=== PATIENT | female | born 1945 | race Caucasian/White ===

== ENCOUNTER 2022-05-12 10:15 | Observation (INO) ==
[2022-05-12] MEDS ORDERED: METOPROLOL SUCC 25MG EXT REL TAB PO STA (10:48)
--- NOTE | 2022-05-12 10:52 | Emergency Department Note ---
Impression & Plan Atrial fibrillation with rapid ventricular response ED Provider Note INFORMANT: Patient ED PROVIDER(S): Gerardo Paula MD CHIEF COMPLAINT: Palpitations and chest discomfort PLAN: Disposition: Admitted Condition: Good Outpatient prescription management: none Referral: None MEDICAL DECISION MAKING: Patient presented because of chest discomfort, shortness of breath and ge neralized weakness with palpitations and a heart rate of 188. She has history of A. fib and it sounds like she experienced an episode of A. fib with RVR. Patient presented with a heart rate of 151 and by time she had an EKG performed her heart rate decreased and she appeared to have reverted back to a sinus rhythm with ectopy. A work-up was performed. Initial CBC and chemistry panel was unremarkable. The patient did have a normal troponin. She had some additional chest symptoms and a repeat ECG did not show any acute ischemia. Her monitoring showed that she maintained a sinus rhythm. She was given her morning atenolol. She was monitored and a repeat troponin was performed. Repeat t roponin did increase into the slightly abnormal level. I did consult with [facility] cardiology. She normally sees Dr. Lucio but Dr. Thomas was available. Given the symptoms and the change in troponin he recommended the patient come in to have serial troponin measurements as well as an echocardi ogram and monitoring by the hospitalist. Consultation was made with the [facility] hospitalist service.patient was evaluated in the admitted for further management Triage Nursing notes reviewed and agree them. Vital Signs: reviewed and remarkable for significant tachycardia Differential diagnosis: Premature contractions, electrolyte abnormality, cardiac dysrhythmia, thyroid dysfunction, pulmonary embolism, infection, gastrointestinal, as well as other pathologies. Diagnostics interpreted by me: ECG: Twelve-lead ECG #1 revealed a sinus tachycardia at [address] elevation or depression. No PVCs. No obvious ischemia. Her repeat ECG #2 revealed a normal sinus rhythm at [address] elevation or depression. No PVCs or PACs. Cardiac Monitoring: Cardiac monitoring ordered by me: The patient was placed on continuous cardiac monitoring and observed. It revealed a sinus tachycardic rhythm at 110 beats per minute without evidence of dysrhythmia. Imaging studies: Deferred HPI: The patient is a 77 year old female who presents to the Emergency Room with complaints of palpitations and racing heartbeat. This started this morning and is now resolved. The patient also notes the following associated symptoms, lightheadedness, SOB. The patient has taken her eliquis but not metoprolol for relieving factors. Current pain is rated as 0/10. Hx of AFIB. Pt denies LOC, headache, fevers, chills, diaphoresis, visual changes, neck pain, chest pain, nausea, vomiting, abdominal pain, back pain, melena, hematochezia, urinary symptoms, numbness, lymphadenopathy, rash, or other complaints. ROS: See above HPI for pertinent positives & negatives. A total of 10 systems reviewed and were otherwise negative. PAST MEDICAL HISTORY:See Below , AFIB PAST SURGICAL HISTORY:See Below, FAMILY HISTORY:See Below SOCIAL HISTORY:See Below, retired HOME MEDICATIONS:See Below ALLERGIES:See Below VITALS:See Below PHYSICAL EXAMINATION: GENERAL: Awake, tired-appearing, in no distress HENT: Normocephalic, atraumatic. Oropharynx unremarkable. EYES: Normal conjunctiva. Sclera non-icteric. NECK: Inspection normal. Non-tender. Supple. No nuchal rigidity. FROM. No masses. RESPIRATORY: Clear to auscultation. No wheezes. No rales. Normal respiratory effort. CARDIAC: Normal rate. Normal rhythm. No murmurs. No rubs. Extremities warm and well perfused. Pulses equal. No JVD. GI: Soft, non-distended. No tenderness to palpation. No rebound or guarding. No masses. RECTAL: Deferred. MUSCULOSKELETAL: Atraumatic. Chest examination reveals no tenderness. The back is symmetrical on inspection without obvious abnormality. There is no CVA tenderness to palpation. No joint edema. LOWER EXTREMITIES: Calves are equal size bilaterally and non-tender. No edema. No discoloration. NEURO: Normal sensorium. No sensory or motor deficits noted. SKIN: No rash or jaundice noted. Gerardo Paula MD Past Med/Surg History Medical History Hypertension On apixaban therapy Paroxysmal atrial fibrillation Family History Other Family history non-contributory Social History Smoking Status: Never smoker Tobacco Type: Cigarettes Preferred Language: Armenian Feels Safe at Home: Yes Allergies Allergies Allergy/AdvReac Type Severity Reaction Status Date / Time codeine Allergy Mild ITCHINESS Verified 05/12/22 15:15 hydromorphone [From Dilaudid] Allergy Mild ITCHINESS Verified 05/12/22 15:15 morphine Allergy Mild ITCHINESS Verified 05/12/22 15:15 sulfamethoxazole Allergy Mild ITCHINESS Verified 05/12/22 15:15 [From Bactrim] trimethoprim [From Bactrim] Allergy Mild ITCHINESS Verified 05/12/22 15:15 theophylline Allergy Unknown CAN'T Verified 05/12/22 15:15 REMEMBER tramadol Allergy Unknown CAN'T Verified 05/12/22 15:15 REMEMBER REYNOLD Inhibitors AdvReac Intermediate Cough Verified 05/12/22 15:15 nefazodone [From Serzone] AdvReac Intermediate FLU-LIKE Verified 05/12/22 15:15 SYMPTOMS tamoxifen AdvReac Intermediate Joint Pain Verified 05/12/22 15:15 NSAIDS (Non-Steroidal AdvReac Unknown POST Verified 05/12/22 15:15 Anti-Inflamma GASTRIC BYPASS SURGERY Home Meds Home Medications Medication Instructions Recorded Confirmed acetaminophen 500 mg tablet 1,000 mg PO BID 05/12/22 05/12/22 (Tylenol Extra Strength) amitriptyline 10 mg tablet 10 mg PO HS 05/12/22 05/12/22 apixaban 5 mg tablet (Eliquis) 5 mg PO BID 05/12/22 05/12/22 gabapentin 300 mg capsule 900 mg PO HS 05/12/22 05/12/22 glucosam 750 mg-chondroi 100 1 tab PO QAM 05/12/22 05/12/22 mg-hyalur 1.65 mg-CF borate 108 mg tablet ([facility]) melatonin 3 mg tablet 6 mg PO HS 05/12/22 05/12/22 metoprolol succinate 25 mg 25 mg PO DAILY 05/12/22 05/12/22 tablet,extended release 24 hr multivitamin 1 tab PO QAM 05/12/22 05/12/22 rosuvastatin 10 mg tablet 10 mg PO DAILY 05/12/22 05/12/22 Results & Data (ED) Vital Signs Vital Signs - 24 hr 05/12/22 10:17 05/12/22 10:50 05/12/22 11:00 Temperature 36.6 C Temperature Source Temporal Artery Scan Pulse Rate 151 H 113 H 102 H Pulse Rate from SpO2 Sensor 98 H Respiratory Rate 20 15 17 Respiratory Effort / Characteristics Non-Labored Respiratory Depth Normal Blood Pressure 131/80 Blood Pressure Mean 97 Pulse Oximetry 98 95 Oxygen Delivery Method Room Air Sepsis Recent Fever Within 48 Hours No Sepsis New/Unexplained Change in Mental Status No Sepsis Action Taken by Nursing No Action Required 05/12/22 11:10 05/12/22 11:20 05/12/22 11:30 Temperature Temperature Source Pulse Rate 114 H 101 H 89 Pulse Rate from SpO2 Sensor 109 H 93 H 88 Respiratory Rate 17 16 18 Respiratory Effort / Characteristics Respiratory Depth Blood Pressure Blood Pressure Mean Pulse Oximetry 95 95 93 Oxygen Delivery Method Sepsis Recent Fever Within 48 Hours Sepsis New/Unexplained Change in Mental Status Sepsis Action Taken by Nursing 05/12/22 11:40 05/12/22 11:50 05/12/22 12:00 Temperature Temperature Source Pulse Rate 88 83 83 Pulse Rate from SpO2 Sensor 85 83 83 Respiratory Rate 13 17 12 Respiratory Effort / Characteristics Respiratory Depth Blood Pressure Blood Pressure Mean Pulse Oximetry 95 94 94 Oxygen Delivery Method Sepsis Recent Fever Within 48 Hours Sepsis New/Unexplained Change in Mental Status Sepsis Action Taken by Nursing 05/12/22 12:10 05/12/22 12:20 05/12/22 12:30 Temperature Temperature Source Pulse Rate 86 83 81 Pulse Rate from SpO2 Sensor 83 83 82 Respiratory Rate 14 15 12 Respiratory Effort / Characteristics Respiratory Depth Blood Pressure Blood Pressure Mean Pulse Oximetry 93 94 95 Oxygen Delivery Method Sepsis Recent Fever Within 48 Hours Sepsis New/Unexplained Change in Mental Status Sepsis Action Taken by Nursing 05/12/22 14:36 05/12/22 14:40 05/12/22 15:06 Temperature Temperature Source Pulse Rate 96 H 86 Pulse Rate from SpO2 Sensor Respiratory Rate 18 Respiratory Effort / Characteristics Respiratory Depth Blood Pressure 172/95 H Blood Pressure Mean 120 Pulse Oximetry Oxygen Delivery Method Sepsis Recent Fever Within 48 Hours Sepsis New/Unexplained Change in Mental Status Sepsis Action Taken by Nursing Laboratory Data Result diagrams: 05/12/22 10:43 05/12/22 10:43 Lab Results 05/12/22 05/12/22 05/12/22 Range/Units 10:43 10:43 10:43 WBC 6.82 (4.8-10.8) K/ul RBC 4.09 (3.93-5.22) M/uL Hgb 13.9 (12.0-16.0) g/dl Hct 41.6 (34.1-44.9) % MCV 101.7 H (80.0-100.0) fL MCH 34.0 (25.0-34.0) pg MCHC 33.4 (32.0-36.0) g/dL RDW Std Deviation 47.0 H (36.4-46.3) fL RDW Coeff of Yary 12.4 (11.5-14.5) % Plt Count 230 (130-400) K/uL MPV 10.8 (9.4-12.3) fL Immature Gran % (Auto) 0.3 % Neut % (Auto) 71.0 % Lymph % (Auto) 19.6 % Letcher % (Auto) 8.1 % Eos % (Auto) 0.4 % Baso % (Auto) 0.6 % Neut # (Auto) 4.84 (1.4-6.5) K/uL Lymph # (Auto) 1.34 (1.2-3.4) K/uL Letcher # (Auto) 0.55 (0.24-0.82) K/uL Eos # (Auto) 0.03 (0-0.50) K/uL Baso # (Auto) 0.04 (0-0.2) K/uL Immature Gran # (Auto) 0.02 (0.00-0.02) K/uL Sodium 138 (136-145) mmol/L Potassium 3.7 (3.5-5.1) mmol/L Chloride 104 (98-107) mmol/L Carbon Dioxide 26 (21-32) mmol/L Anion Gap 8 (3-11) BUN 10 (6-23) mg/dl Creatinine 0.71 (0.6-1.2) mg/dl Est Cr Clr Drug Dosing 64.9 ml/min Est GFR ( Amer) 95.9 ml/min Est GFR (Non-Af Amer) 82.7 ml/min BUN/Creatinine Ratio 14.1 (10-20) Glucose 118 H (70-99(Fasting)) mg/dl Calcium 9.7 (8.5-10.1) mg/dl Magnesium 1.8 (1.7-2.4) mg/dl Total Bilirubin 0.7 (0.2-1.0) mg/dl AST 27 (13-39) U/L ALT 32 (7-52) U/L Alkaline Phosphatase 51 (34-104) U/L Troponin I High Sens 9.3 (0-14) pg/ml Total Protein 7.2 (6.0-8.3) gm/dl Albumin 4.4 (3.4-5.0) gm/dl Globulin 2.8 (2.5-4.0) gm/dl Albumin/Globulin Ratio 1.6 (0.9-2) TSH 1.234 (0.300-4.500) uIu/ml SARS-CoV-2, RNA, NAAT (NEGATIVE) 05/12/22 05/12/22 Range/Units 12:50 Unknown WBC (4.8-10.8) K/ul RBC (3.93-5.22) M/uL Hgb (12.0-16.0) g/dl Hct (34.1-44.9) % MCV (80.0-100.0) fL MCH (25.0-34.0) pg MCHC (32.0-36.0) g/dL RDW Std Deviation (36.4-46.3) fL RDW Coeff of Yary (11.5-14.5) % Plt Count (130-400) K/uL MPV (9.4-12.3) fL Immature Gran % (Auto) % Neut % (Auto) % Lymph % (Auto) % Letcher % (Auto) % Eos % (Auto) % Baso % (Auto) % Neut # (Auto) (1.4-6.5) K/uL Lymph # (Auto) (1.2-3.4) K/uL Letcher # (Auto) (0.24-0.82) K/uL Eos # (Auto) (0-0.50) K/uL Baso # (Auto) (0-0.2) K/uL Immature Gran # (Auto) (0.00-0.02) K/uL Sodium (136-145) mmol/L Potassium (3.5-5.1) mmol/L Chloride (98-107) mmol/L Carbon Dioxide (21-32) mmol/L Anion Gap (3-11) BUN (6-23) mg/dl Creatinine (0.6-1.2) mg/dl Est Cr Clr Drug Dosing ml/min Est GFR ( Amer) ml/min Est GFR (Non-Af Amer) ml/min BUN/Creatinine Ratio (10-20) Glucose (70-99(Fasting)) mg/dl Calcium (8.5-10.1) mg/dl Magnesium (1.7-2.4) mg/dl Total Bilirubin (0.2-1.0) mg/dl AST (13-39) U/L ALT (7-52) U/L Alkaline Phosphatase (34-104) U/L Troponin I High Sens 15.3 H D (0-14) pg/ml Total Protein (6.0-8.3) gm/dl Albumin (3.4-5.0) gm/dl Globulin (2.5-4.0) gm/dl Albumin/Globulin Ratio (0.9-2) TSH (0.300-4.500) uIu/ml SARS-CoV-2, RNA, NAAT NEGATIVE (NEGATIVE) Administered Medications Discontinued Medications Magnesium Oxide (Magnesium Oxide 400 Mg Tab) 400 mg PO NOW STA Stop: 05/12/22 14:17 Last Admin: 05/12/22 14:32 Dose: 400 mg Documented By: TRICIA Metoprolol Succinate (Metoprolol Succ 25mg Ext Rel Tab) 25 mg PO NOW STA Stop: 05/12/22 10:49 Last Admin: 05/12/22 11:07 Dose: 25 mg Documented By: JEAN PAULK Potassium Chloride (Potassium Chloride Crtab 20 Meq Tabcr) 20 meq PO NOW STA Stop: 05/12/22 14:17 Last Admin: 05/12/22 14:32 Dose: 20 meq Documented By: TRICIA Discharge Plan Visit Data Chief Complaint: Chest Pain Stated Complaint: HEART FLUTTERING, SOB, LIGHTNESS, WEAKNESS IN KNEE ED Provider: Gerardo Paula Discharge Problem: Atrial fibrillation with rapid ventricular response Forms Stand Alone Forms: My [facility] Liquid Accounts Prescriptions Prescriptions: No Action amitriptyline 10 mg tablet 10 mg PO HS gabapentin 300 mg capsule 900 mg PO HS metoprolol succinate 25 mg tablet extended release 24 hr 25 mg PO DAILY rosuvastatin 10 mg tablet 10 mg PO DAILY Eliquis 5 mg tablet 5 mg PO BID multivitamin Tablet 1 tab PO QAM melatonin 3 mg Tablet 6 mg PO HS acetaminophen [Tylenol Extra Strength] 500 mg Tablet 1,000 mg PO BID [facility] 750 mg-100 mg- 1.65 mg-108 mg Tablet 1 tab PO QAM Referrals Referrals: Rashard Kramer MD [Primary Care Provider] -
[2022-05-12 11:21] LABS: Basophils # (auto) 0.04 K/uL (0-0.2); Basophils % (auto) 0.6 %; Eosinophils # (auto) 0.03 K/uL (0-0.50); Eosinophils % (auto) 0.4 %; Hematocrit (blood only) 41.6 % (34.1-44.9); Hemoglobin 13.9 g/dl (12.0-16.0); Immature Granulocytes # (auto) 0.02 K/uL (0.00-0.02); Immature Granulocytes % (auto) 0.3 %; Lymphocytes # (auto) 1.34 K/uL (1.2-3.4); Lymphocytes % (auto) 19.6 %; Mean Corpuscular Hgb Conc 33.4 g/dL (32.0-36.0); Mean Corpuscular Volume 101.7 fL (80.0-100.0); Mean Platelet Volume 10.8 fL (9.4-12.3); Monocytes # (auto) 0.55 K/uL (0.24-0.82); Monocytes % (auto) 8.1 %; Neutrophils # (auto) 4.84 K/uL (1.4-6.5); Platelet Count 230 K/uL (130-400); RDW Coefficient of Variation 12.4 % (11.5-14.5); Red Blood Count 4.09 M/uL (3.93-5.22); White Blood Count 6.82 K/ul (4.8-10.8)
[2022-05-12 11:35] LABS: Albumin Globulin Ratio 1.6 (0.9-2); Albumin Level 4.4 gm/dl (3.4-5.0); BUN Creatinine Ratio 14.1 (10-20); Bilirubin,Total 0.7 mg/dl (0.2-1.0); Calcium 9.7 mg/dl (8.5-10.1); Creatinine Clr Calc Pharmacy 64.9 ml/min; Est GFR (African American) 95.9 ml/min; Est GFR (Non-African American) 82.7 ml/min; Globulin 2.8 gm/dl (2.5-4.0); Magnesium 1.8 mg/dl (1.7-2.4); Potassium 3.7 mmol/L (3.5-5.1); Total Protein 7.2 gm/dl (6.0-8.3)
[2022-05-12 11:38] LABS: Troponin I High Sensitivity 9.3 pg/ml (0-14)
[2022-05-12] MEDS ORDERED: POTASSIUM CHLORIDE CRTAB 20 MEQ TABCR PO STA (14:16)
[2022-05-12] MEDS ORDERED: MAGNESIUM OXIDE 400 MG TAB PO STA (14:16)
--- NOTE | 2022-05-12 15:06 | History & Physical Report ---
Date of Service May 12, 2022 Assessment & Plan (1) Atrial fibrillation with rapid ventricular response: Plan: - Present on initial eval in ED with HR 150s, converted back to NSR in ED prior to intervention. - History of such, diagnosed several months ago in outside hospital, from her recall it seems that she has been going in and out of A. fib at home since initial diagnosis. - Continue Eliquis and metoprolol--no missed doses. - Will consult [facility] cardiology to evaluate patient treatment, consider medication dose increase. - Will order K and Mg replacement to get K 4.0, Mg 2.0. - Echo in AM. - Lopressor 5 mg IV prn overnight. (2) Hyperlipidemia: Plan: - Continue statin. Plan - Admit to PCU. - SCDS, Eliquis for VTE ppx. - Conditional Code--patient agreeable to intubation/artificial airway for respiratory failure, does not want CPR/defibrillation/other ACLS protocol in setting of CODE BLUE. History of Present Illness Chief Complaint: rapid, irregular heart rate since this morning Primary Care Provider: Rashard Kramer MD Trisha Hwang is a 77-year-old female with past medical history significant for A. fib and hyperlipidemia presenting today with palpitations. She was awoken this morning with her heart racing, and on her home monitor measured her heart rate to be in the 180s and irregular. She felt a heaviness in her chest but this. She waited at home to see if the rhythm would go back to normal, however after several hours she decided to come to the ED for further evaluation. States she was recently diagnosed with A. fib about 3 months ago at an outside hospital in [facility] and has since been compliant with her Eliquis and metoprolol but notes she has gotten out of A. fib several times at home, each of these episodes subsiding on its own. She denies associated dizziness or shortness of breath. On arrival her heart rate was in the 150s, otherwise vital signs within normal limits. Prior to EKG being obtained, patient's HR decreased and she was found to be NSR on EKG. Labs unrevealing, her troponin was 9.3, was repeated 2 hours later and was 15.3. TSH is within normal limits, without leukocytosis or anemia. Electrolytes all within normal limits, potassium 3.7 and magnesium 1.8. COVID-negative. As patient missed her morning metoprolol, she was given a dose of metoprolol so sent 25 mg, as well as oral magnesium and potassium. The case was discussed with the on-call [facility] print manager, who recommended bringing patient in overnight to trend the troponin, obtain echocardiogram, and further cardiac monitoring on telemetry bed. Allergies Allergy/AdvReac Type Severity Reaction Status Date / Time codeine Allergy Mild ITCHINESS Verified 05/12/22 15:15 hydromorphone [From Dilaudid] Allergy Mild ITCHINESS Verified 05/12/22 15:15 morphine Allergy Mild ITCHINESS Verified 05/12/22 15:15 sulfamethoxazole Allergy Mild ITCHINESS Verified 05/12/22 15:15 [From Bactrim] trimethoprim [From Bactrim] Allergy Mild ITCHINESS Verified 05/12/22 15:15 theophylline Allergy Unknown CAN'T Verified 05/12/22 15:15 REMEMBER tramadol Allergy Unknown CAN'T Verified 05/12/22 15:15 REMEMBER REYNOLD Inhibitors AdvReac Intermediate Cough Verified 05/12/22 15:15 nefazodone [From Serzone] AdvReac Intermediate FLU-LIKE Verified 05/12/22 15:15 SYMPTOMS tamoxifen AdvReac Intermediate Joint Pain Verified 05/12/22 15:15 NSAIDS (Non-Steroidal AdvReac Unknown POST Verified 05/12/22 15:15 Anti-Inflamma GASTRIC BYPASS SURGERY Home Medications Medication Instructions Recorded Confirmed Type acetaminophen 500 mg tablet 1,000 mg PO BID 05/12/22 05/12/22 History (Tylenol Extra Strength) amitriptyline 10 mg tablet 10 mg PO HS 05/12/22 05/12/22 History apixaban 5 mg tablet (Eliquis) 5 mg PO BID 05/12/22 05/12/22 History gabapentin 300 mg capsule 900 mg PO HS 05/12/22 05/12/22 History glucosam 750 mg-chondroi 100 1 tab PO QAM 05/12/22 05/12/22 History mg-hyalur 1.65 mg-CF borate 108 mg tablet ([facility]) melatonin 3 mg tablet 6 mg PO HS 05/12/22 05/12/22 History metoprolol succinate 25 mg 25 mg PO DAILY 05/12/22 05/12/22 History tablet,extended release 24 hr multivitamin 1 tab PO QAM 05/12/22 05/12/22 History rosuvastatin 10 mg tablet 10 mg PO DAILY 05/12/22 05/12/22 History Past Med/Surg History Medical History (Updated 05/12/22 @ 17:07 by Noemi Zuniga PA-C) Hypertension On apixaban therapy Paroxysmal atrial fibrillation Surgical History (Updated 05/12/22 @ 17:04 by Noemi Zuniga PA-C) H/O right mastectomy History of appendectomy Family History Other Family history non-contributory Social History Smoking Status: Never smoker Tobacco Type: Cigarettes Preferred Language: Sami Feels Safe at Home: Yes Review of Systems Review of Systems: Constitutional: No fever/chills, weakness, fatigue, myalgias, anorexia, night sweats Eyes: No diplopia, no worsening or blurred vision ENT: normal hearing, no trouble swallowing Respiratory: No cough, sputum, dyspnea at rest or on exertion Cardiovascular: Irregular heartbeat with chest pressure this a.m., since resolved Abdomen: No pain, nausea, vomiting, diarrhea or constipation : Denies dysuria, hematuria, increased urgency/frequency, urinary retention Musculoskeletal: No joint pain, calf pain, swelling Neurologic: No weakness, numbness/tingling, or balance problems Psychiatric: No anxiety or depression Skin: No rash or itch Physical Exam Physical Exam: General: awake, alert, no apparent distress Head: Normocephalic, atraumatic ENT: PERRL, EOMI, no pharyngeal exudate, mucous membranes moist Chest: Clear to auscultation, on room air, no adventitious breath sounds Cardiac: Regular rate and rhythm, no murmur, no JVD, normal peripheral pulses, good capillary refill Abdominal: NABS x 4 quadrants, soft, nontender to palpation, no rebound, guarding or tenderness Extremities: Normal inspection, no peripheral edema or erythema, calfs nontender to palpation Psych: Normal mood and affect Neuro: AAO x 3, strength intact bilaterally and rated 5/5, no motor deficits, speech is clear, no peripheral sensory deficits Skin: no rash or erythema Results & Data Results & Data ([facility]) Vital Signs (Past 12 Hours) Vital Signs Temp Pulse Resp BP Pulse Ox O2 Del Method 05/12/22 14:36 96 H 05/12/22 12:30 81 12 95 05/12/22 12:20 83 15 94 05/12/22 12:10 86 14 93 05/12/22 12:00 83 12 94 05/12/22 11:50 83 17 94 05/12/22 11:40 88 13 95 05/12/22 11:30 89 18 93 05/12/22 11:20 101 H 16 95 05/12/22 11:10 114 H 17 95 05/12/22 11:00 102 H 17 05/12/22 10:50 113 H 15 95 05/12/22 10:17 36.6 C 151 H 20 131/80 98 Room Air Laboratory Results Abnormal lab results 05/12/22 05/12/22 05/12/22 Range/Units 10:43 10:43 12:50 MCV 101.7 H (80.0-100.0) fL RDW Std Deviation 47.0 H (36.4-46.3) fL Glucose 118 H (70-99(Fasting)) mg/dl Troponin I High Sens 15.3 H D (0-14) pg/ml ECG Additional Comments: Normal sinus rhythm Normal ECG When compared with ECG of 12-MAY-2022 10:38, (unconfirmed) No significant change was found. Code Status & VTE Plan Code Status Conditional code--YES to artificial airway/intubation, NO to CPR, defibrillation, other ACLS protocol. Supervising Physician Co-Signing Physician Notes I personally saw and examined the patient. I verified all bill points and agree with Noemi Zuniga PA-C with the following exceptions and/or additions: 77-year-old female who presents to the ER with elevated heart rate and known atrial fibrillation. We will EKGs in the emergency room sinus rhythm show sinus rhythm. ER physician discussed with cardiology and recommended trending troponins repeat echocardiogram. Patient without any current symptoms. HS1+2, no murmurs, Chest CTAB PG Care Time/CCT Total # of Minutes Spent Total Time Spent with Patient: Total time spent is greater than 50% in coordination of care (as documented) at patient's floor/unit and/or counseling patient: Coding Level of Care Code INT OBSERVATION CARE 50M LVL 2 Diagnoses Atrial fibrillation with rapid ventricular response I48.91 Hyperlipidemia E78.5
[2022-05-12] MEDS ORDERED: ONDANSETRON INJ 2 MG/ML 2 ML VIAL IV PRN (17:30)
[2022-05-12] MEDS ORDERED: MAGNESIUM SULFATE / D5W 1 GM/100 ML BAG IV ONE (17:30)
[2022-05-12] MEDS ORDERED: ALUMINUM/MAGNESIUM SUSP 30 ML UDC PO PRN (17:30)
[2022-05-12] MEDS ORDERED: LACTATED RINGER'S 1,000 ML IV SCH (17:30)
[2022-05-12] MEDS ORDERED: METOPROLOL TARTRATE 1 MG/ML VIAL IV PRN (17:30)
[2022-05-12] MEDS ORDERED: ACETAMINOPHEN 325 MG TAB PO PRN (17:30)
[2022-05-12] MEDS: ACETAMINOPHEN 500 MG TAB PO SCH (20:54)
[2022-05-12] MEDS: APIXABAN 5 MG TABLET PO SCH (20:55)
[2022-05-12] MEDS: MELATONIN 3 MG TAB PO SCH (20:55)
[2022-05-12] MEDS: AMITRIPTYLINE HCL 10 MG TAB PO SCH (21:23)
[2022-05-13 06:41] LABS: Basophils # (auto) 0.03 K/uL (0-0.2); Basophils % (auto) 0.5 %; Eosinophils # (auto) 0.04 K/uL (0-0.50); Eosinophils % (auto) 0.7 %; Hematocrit (blood only) 39.2 % (34.1-44.9); Immature Granulocytes # (auto) 0.01 K/uL (0.00-0.02); Immature Granulocytes % (auto) 0.2 %; Lymphocytes # (auto) 1.94 K/uL (1.2-3.4); Lymphocytes % (auto) 35.3 %; Mean Corpuscular Hemoglobin 34.1 pg (25.0-34.0); Mean Corpuscular Hgb Conc 33.2 g/dL (32.0-36.0); Mean Corpuscular Volume 102.9 fL (80.0-100.0); Mean Platelet Volume 10.7 fL (9.4-12.3); Monocytes # (auto) 0.37 K/uL (0.24-0.82); Monocytes % (auto) 6.7 %; Neutrophils % (auto) 56.6 %; Platelet Count 190 K/uL (130-400); RDW Coefficient of Variation 12.4 % (11.5-14.5); RDW Standard Deviation 47.2 fL (36.4-46.3); Red Blood Count 3.81 M/uL (3.93-5.22); White Blood Count 5.49 K/ul (4.8-10.8)
[2022-05-13 07:04] LABS: BUN Creatinine Ratio 15.8 (10-20); Calcium 8.6 mg/dl (8.5-10.1); Creatinine Clr Calc Pharmacy 80.8 ml/min; Est GFR (African American) 104.4 ml/min
[2022-05-13 07:11] LABS: Troponin I High Sensitivity 9.9 pg/ml (0-14)
--- NOTE | 2022-05-13 07:33 | Hospitalist Progress Note ---
Date of Service May 13, 2022 Assessment & Plan (1) Atrial fibrillation with rapid ventricular response: Plan: 77yo female with a history of atrial fibrillation with RVR (on eliquis) and HLD presented to [facility] on 05/12 with palpitations and tachycardia to the 180s. Atrial fibrillation with RVR Presented with palpitations and tachycardia (rates to the 180s noted prior to arrival) Patient spontaneously converted to NSR prior to arrival; has not had a repeat episode of RVR Echo unremarkable Cardiology consulted and recommends continuing on current rate control regimen (metoprolol succinate 25mg daily) If patient has further episodes of RVR in-hospital or in the future, can consider antiarrhythmic agent Continue home eliquis Potential discharge 05/14 if there are no further episodes of RVR Elevated troponin hsTroponin on admission trivially elevated to 9.3; this later peaked at 15.3 before normalizing Suspect secondary to RVR No CP or concerning EKG findings No further hsTroponin trending indicated HLD: continue home statin FEN: regular Code status: conditional (intubation/ventilation ONLY - no chest compressions, no defibrillation) DVT ppx: home eliquis Consults: cardiology Dispo: PCU (2) Hyperlipidemia: Admission and Anticipated Discharge Date Admission Date: May 12, 2022 Supervising Physician Co-Signing Physician Notes I personally examined the patient and verified all bill points of history and exam, discussed case, and agree with decision making with Dr Flores She is feeling better. Breathing better. No more palpitations. Notes that she has been bouncing in and out of A. fib someand after discussion with cardiology she would like to/agrees with cardiology plan for monitoring into tomorrow. Vitals noted, in general she is awake and alert pleasant no distress. HEENT normocephalic atraumatic mucous membranes moist. Breathing unlabored no accessory muscle use good effort. Skin shows no rashes no pallor or icterus. Neuro without focal deficits. Paroxysmal A. fib/RVRnow sinus, rate controlled. Cardiology would prefer to monitor into tomorrow. Continue to follow closely. Continue current medications Otherwise as above. Subjective see attending documentation Physical Exam Physical Exam: see attending documentation Results & Data Results & Data ([facility]) Vital Signs (Past 12 Hours) Vital Signs Pulse Resp BP Pulse Ox O2 Del Method 05/13/22 06:04 65 18 146/74 H 97 Room Air 05/13/22 04:23 60 17 127/70 95 Room Air 05/13/22 00:19 71 17 134/70 93 Room Air 05/12/22 22:38 71 19 142/95 H 93 Room Air Resident Activity Tracking Resident Involvement: Resident Care Provided Care Provided: Adult Hospital Medicine
[2022-05-13] MEDS ORDERED: GABAPENTIN 300 MG CAP PO SCH ×2 (09:00→21:00)
[2022-05-13] MEDS ORDERED: NON-FORMULARY MEDICATION (Glucosam-Chond-Hyalu-Cf Borate [Move Free Joint Health] 750 mg-1 PO SCH (09:00)
[2022-05-13] MEDS ORDERED: AMITRIPTYLINE HCL 10 MG TAB PO SCH (09:00)
[2022-05-13] MEDS: ACETAMINOPHEN 500 MG TAB PO SCH ×3 (09:49→20:43)
[2022-05-13] MEDS: ROSUVASTATIN CALCIUM 10 MG TAB PO SCH (09:50)
[2022-05-13] MEDS: MULTIVITAMIN TAB PO SCH (09:50)
[2022-05-13] MEDS: APIXABAN 5 MG TABLET PO SCH ×2 (09:50→20:35)
[2022-05-13] MEDS: METOPROLOL SUCC 25MG EXT REL TAB PO SCH (09:50)
[2022-05-13] MEDS: POTASSIUM CHLORIDE CRTAB 20 MEQ TABCR PO SCH ×2 (09:51→20:44)
[2022-05-13 09:57] LABS: Magnesium 2.2 mg/dl (1.7-2.4)
--- NOTE | 2022-05-13 10:03 | XCELERA ---
[id number]
--- NOTE | 2022-05-13 10:51 | Cardiology Consultation ---
Date of Consultation May 13, 2022 Assessment & Plan (1) Atrial fibrillation with rapid ventricular response: (2) Hyperlipidemia: Plan The patient is clinically stable and maintaining sinus rhythm. The choice is to continue her on her current medications or add an antiarrhythmic medication. 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 I feel the best approach and she is agreeable is to continue her current medications. We will watch her overnight on telemetry and as long as she does not have a recurrence of the atrial fibrillation she can be discharged tomorrow. If she does have a reoccurrence of persistent atrial fibrillation either during this hospital admission or in the future then antiarrhythmic medication can be reconsidered. Her echocardiogram this admission was unremarkable. Minimal bump in cardiac troponins was most likely due to to the atrial fibrillation and RVR. 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 From the [facility] EHR I was able to review records from [facility] and their cardiology group. She has a history of paroxysmal atrial fibrillation which started approximately a year ago. She has been effec tively treated with metoprolol and Eliquis. She suddenly had the occurrence of a rapid heart rate. She usually has short brief episodes of the atrial fibrillation but this became prolonged and she presented to the hospital where she was found to be in atrial fibrillation with RVR. Since admission she has continuously converted to normal sinus rhythm. She has no complaints currently. Allergies Allergy/AdvReac Type Severity Reaction Status Date / Time codeine Allergy Mild ITCHINESS Verified 05/12/22 15:15 hydromorphone [From Dilaudid] Allergy Mild ITCHINESS Verified 05/12/22 15:15 morphine Allergy Mild ITCHINESS Verified 05/12/22 15:15 sulfamethoxazole Allergy Mild ITCHINESS Verified 05/12/22 15:15 [From Bactrim] trimethoprim [From Bactrim] Allergy Mild ITCHINESS Verified 05/12/22 15:15 theophylline Allergy Unknown CAN'T Verified 05/12/22 15:15 REMEMBER tramadol Allergy Unknown CAN'T Verified 05/12/22 15:15 REMEMBER REYNOLD Inhibitors AdvReac Intermediate Cough Verified 05/12/22 15:15 nefazodone [From Serzone] AdvReac Intermediate FLU-LIKE Verified 05/12/22 15:15 SYMPTOMS tamoxifen AdvReac Intermediate Joint Pain Verified 05/12/22 15:15 NSAIDS (Non-Steroidal AdvReac Unknown POST Verified 05/12/22 15:15 Anti-Inflamma GASTRIC BYPASS SURGERY Home Medications Medication Instructions Recorded Confirmed Type acetaminophen 500 mg tablet 1,000 mg PO BID 05/12/22 05/12/22 History (Tylenol Extra Strength) amitriptyline 10 mg tablet 10 mg PO HS 05/12/22 05/12/22 History apixaban 5 mg tablet (Eliquis) 5 mg PO BID 05/12/22 05/12/22 History gabapentin 300 mg capsule 900 mg PO HS 05/12/22 05/12/22 History glucosam 750 mg-chondroi 100 1 tab PO QAM 05/12/22 05/12/22 History mg-hyalur 1.65 mg-CF borate 108 mg tablet (1stdibs Free [facility]) melatonin 3 mg tablet 6 mg PO HS 05/12/22 05/12/22 History metoprolol succinate 25 mg 25 mg PO DAILY 05/12/22 05/12/22 History tablet,extended release 24 hr multivitamin 1 tab PO QAM 05/12/22 05/12/22 History rosuvastatin 10 mg tablet 10 mg PO DAILY 05/12/22 05/12/22 History Patient History Medical History Hypertension On apixaban therapy Paroxysmal atrial fibrillation Surgical History H/O right mastectomy History of appendectomy Family History Other Family history non-contributory Social History Smoking Status: Never smoker Tobacco Type: Cigarettes Second Hand Exposure: No; Hx Alcohol Use: No Hx Substance Use: No Preferred Language: Luxembourgish Communication Ability: Effective Board Operator Required: No Beliefs That Will Affect Care: Jewish Current Living Situation: Alone Feels Safe at Home: Yes Assistive Devices: None Review of Systems Review of Systems: Review of Systems: See HPI for pertinent positives. All other 10 point review of systems are negative. Physical Exam Physical Exam: General: no acute distress and stated age Head: normocephalic, no masses, lesions, tenderness or abnormalities Eyes: conjunctiva are pink and non-injected, sclera clear Neck: supple, no adenopathy, no bruits, normal jugular venous pulse, no hepatojugular reflux Chest: normal shape and normal respiratory effort Lungs: clear to auscultation and percussion Cardiac Exam: - regular rate & rhythm, no murmurs gallops or rubs - normal S1, normal S2 Pulses: 2(+) throughout Abdomen: abdomen soft, non-tender, no abnormal masses and no hepatosplenomegaly Musculoskeletal: no gait disturbance, no joint inflammation, no deforming arthritis Extremities: no edema and no cyanosis Neuro: grossly normal exam Results & Data ([facility]) Vital Signs (Past 12 Hours) Vital Signs Pulse Resp BP Pulse Ox O2 Del Method 05/13/22 09:51 88 20 125/57 L 96 Room Air 05/13/22 06:04 65 18 146/74 H 97 Room Air 05/13/22 04:23 60 17 127/70 95 Room Air 05/13/22 00:19 71 17 134/70 93 Room Air Laboratory Results Laboratory Results - last 24 hr 05/12/22 05/12/22 05/12/22 10:43 10:43 10:43 WBC 6.82 RBC 4.09 Hgb 13.9 Hct 41.6 MCV 101.7 H MCH 34.0 MCHC 33.4 RDW Std Deviation 47.0 H RDW Coeff of Yary 12.4 Plt Count 230 MPV 10.8 Immature Gran % (Auto) 0.3 Neut % (Auto) 71.0 Lymph % (Auto) 19.6 Coke % (Auto) 8.1 Eos % (Auto) 0.4 Baso % (Auto) 0.6 Neut # (Auto) 4.84 Lymph # (Auto) 1.34 Coke # (Auto) 0.55 Eos # (Auto) 0.03 Baso # (Auto) 0.04 Immature Gran # (Auto) 0.02 Sodium 138 Potassium 3.7 Chloride 104 Carbon Dioxide 26 Anion Gap 8 BUN 10 Creatinine 0.71 Est Cr Clr Drug Dosing 64.9 Est GFR ( Amer) 95.9 Est GFR (Non-Af Amer) 82.7 BUN/Creatinine Ratio 14.1 Glucose 118 H Calcium 9.7 Magnesium 1.8 Total Bilirubin 0.7 AST 27 ALT 32 Alkaline Phosphatase 51 Troponin I High Sens 9.3 Total Protein 7.2 Albumin 4.4 Globulin 2.8 Albumin/Globulin Ratio 1.6 TSH 1.234 SARS-CoV-2, RNA, NAAT 05/12/22 05/12/22 05/13/22 12:50 Unknown 00:13 WBC RBC Hgb Hct MCV MCH MCHC RDW Std Deviation RDW Coeff of Yary Plt Count MPV Immature Gran % (Auto) Neut % (Auto) Lymph % (Auto) Coke % (Auto) Eos % (Auto) Baso % (Auto) Neut # (Auto) Lymph # (Auto) Coke # (Auto) Eos # (Auto) Baso # (Auto) Immature Gran # (Auto) Sodium Potassium Chloride Carbon Dioxide Anion Gap BUN Creatinine Est Cr Clr Drug Dosing Est GFR ( Amer) Est GFR (Non-Af Amer) BUN/Creatinine Ratio Glucose Calcium Magnesium Total Bilirubin AST ALT Alkaline Phosphatase Troponin I High Sens 15.3 H D 13.3 Total Protein Albumin Globulin Albumin/Globulin Ratio TSH SARS-CoV-2, RNA, NAAT NEGATIVE 05/13/22 05/13/22 05/13/22 06:05 06:05 06:05 WBC 5.49 RBC 3.81 L Hgb 13.0 Hct 39.2 MCV 102.9 H MCH 34.1 H MCHC 33.2 RDW Std Deviation 47.2 H RDW Coeff of Yary 12.4 Plt Count 190 MPV 10.7 Immature Gran % (Auto) 0.2 Neut % (Auto) 56.6 Lymph % (Auto) 35.3 Coke % (Auto) 6.7 Eos % (Auto) 0.7 Baso % (Auto) 0.5 Neut # (Auto) 3.10 Lymph # (Auto) 1.94 Coke # (Auto) 0.37 Eos # (Auto) 0.04 Baso # (Auto) 0.03 Immature Gran # (Auto) 0.01 Sodium 139 Cancelled Potassium 4.0 Cancelled Chloride 106 Cancelled Carbon Dioxide 27 Cancelled Anion Gap 6 Cancelled BUN 9 Cancelled Creatinine 0.57 L Cancelled Est Cr Clr Drug Dosing 80.8 Cancelled Est GFR ( Amer) 104.4 Cancelled Est GFR (Non-Af Amer) 90.0 Cancelled BUN/Creatinine Ratio 15.8 Cancelled Glucose 97 Cancelled Calcium 8.6 Cancelled Magnesium 2.2 Cancelled Total Bilirubin AST ALT Alkaline Phosphatase Troponin I High Sens 9.9 Total Protein Albumin Globulin Albumin/Globulin Ratio TSH SARS-CoV-2, RNA, NAAT Medications Administered Current Inpatient Medications Acetaminophen (Acetaminophen 325 Mg Tab) 650 mg PO Q4H PRN PRN Reason: Pain or Fever Stop: 06/11/22 17:29 Acetaminophen (Acetaminophen 500 Mg Tab) 1,000 mg PO BID [facility] Stop: 06/11/22 20:59 Last Admin: 05/13/22 09:49 Dose: 1,000 mg Al Hydrox/Mg Hydrox/Simethicone (Aluminum/Magnesium Susp 30 Ml Udc) 15 ml PO Q4H PRN PRN Reason: Dyspepsia Stop: 06/11/22 17:29 Amitriptyline HCl (Amitriptyline Hcl 10 Mg Tab) 10 mg PO HS [facility] Stop: 06/11/22 21:14 Last Admin: 05/12/22 21:23 Dose: 10 mg Apixaban (Apixaban 5 Mg Tablet) 5 mg PO BID [facility] Stop: 06/11/22 20:59 Last Admin: 05/13/22 09:50 Dose: 5 mg Gabapentin (Gabapentin 300 Mg Cap) 900 mg PO HS [facility] Stop: 06/12/22 20:59 Melatonin (Melatonin 3 Mg Tab) 6 mg PO HS [facility] Stop: 06/11/22 20:59 Last Admin: 05/12/22 20:55 Dose: 6 mg Metoprolol Succinate (Metoprolol Succ 25mg Ext Rel Tab) 25 mg PO DAILY [facility] Stop: 06/12/22 08:59 Last Admin: 05/13/22 09:50 Dose: 25 mg Metoprolol Tartrate (Metoprolol Tartrate 1 Mg/Ml Vial) 5 mg IV Q5M PRN PRN Reason: Tachycardia HR > 120 Multivitamins (Multivitamin Tab) 1 tab PO QAM [facility] Stop: 06/12/22 08:59 Last Admin: 05/13/22 09:50 Dose: 1 tab Ondansetron HCl (Ondansetron Inj 2 Mg/Ml 2 Ml Vial) 4 mg IV Q6H PRN PRN Reason: Nausea Stop: 06/11/22 17:29 Potassium Chloride (Potassium Chloride Crtab 20 Meq Tabcr) 20 meq PO BID [facility] Stop: 06/12/22 08:59 Last Admin: 05/13/22 09:51 Dose: 20 meq Rosuvastatin Calcium (Rosuvastatin Calcium 10 Mg Tab) 10 mg PO DAILY [facility] Stop: 06/12/22 08:59 Last Admin: 05/13/22 09:50 Dose: 10 mg
--- NOTE | 2022-05-13 18:57 | Billing Data ---
Date of Service May 13, 2022 Coding Level of Care Code 32623 Subseq Obs Care Lvl 2
[2022-05-13] MEDS: AMITRIPTYLINE HCL 10 MG TAB PO SCH (20:35)
[2022-05-13] MEDS: MELATONIN 3 MG TAB PO SCH (20:40)
--- NOTE | 2022-05-13 22:07 | Electrocardiogram Report ---
Test Reason : Blood Pressure : / mmHG Vent. Rate : 102 BPM Atrial Rate : 102 BPM P-R Int : 152 ms QRS Dur : 088 ms QT Int : 332 ms P-R-T Axes : 076 056 062 degrees QTc Int : 432 ms Sinus tachycardia Possible Left atrial enlargement Possible Inferior infarct When compared with ECG of 23-JUL-2007 06:20, Vent. rate has increased BY 38 BPM Confirmed by Stephane Stewart ([id number]) on 05/13/2022 10:06:49 PM Referred By: REFERRED SELF Confirmed By:Stephane Stewart
--- NOTE | 2022-05-13 22:24 | Electrocardiogram Report ---
Test Reason : Blood Pressure : / mmHG Vent. Rate : 085 BPM Atrial Rate : 085 BPM P-R Int : 154 ms QRS Dur : 088 ms QT Int : 348 ms P-R-T Axes : 079 060 067 degrees QTc Int : 414 ms Normal sinus rhythm Cannot rule out Inferior infarct When compared with ECG of 12-MAY-2022 10:38, No significant change was found Confirmed by Stephane Stewart ([id number]) on 05/13/2022 10:24:14 PM Referred By: REFERRED SELF Confirmed By:Stephane Stewart
[2022-05-14] MEDS: APIXABAN 5 MG TABLET PO SCH (08:33)
[2022-05-14] MEDS: ROSUVASTATIN CALCIUM 10 MG TAB PO SCH (08:33)
[2022-05-14] MEDS: ACETAMINOPHEN 500 MG TAB PO SCH (08:33)
[2022-05-14] MEDS: MULTIVITAMIN TAB PO SCH (08:33)
[2022-05-14] MEDS: METOPROLOL SUCC 25MG EXT REL TAB PO SCH (08:33)
[2022-05-14] MEDS: POTASSIUM CHLORIDE CRTAB 20 MEQ TABCR PO SCH (08:36)
--- NOTE | 2022-05-14 09:04 | Cardiology Progress Note ---
Date of Service May 14, 2022 Assessment & Plan (1) Atrial fibrillation with rapid ventricular response: (2) Hyperlipidemia: Plan The patient has been in sinus rhythm for 24 hours. I believe from a cardiac standpoint she can be discharged to outpatient follow-up continuing the metoprolol and Eliquis. The patient does inform me that she has been having episodic dizziness or vertigo with head movements since she has moved from [place] to [place]. Physical therapy to see her and instruct her on Renay maneuvers. I will arrange follow-up through our clinic. Admission and Anticipated Discharge Date Admission Date: May 12, 2022 Subjective The patient had an uneventful night. Review of Systems Review of Systems: Review of Systems: See HPI for pertinent positives. All other 10 point review of systems are negative. Physical Exam Physical Exam: General: no acute distress and stated age Head: normocephalic, no masses, lesions, tenderness or abnormalities Eyes: conjunctiva are pink and non-injected, sclera clear Neck: supple, no adenopathy, no bruits, normal jugular venous pulse, no hepatojugular reflux Chest: normal shape and normal respiratory effort Lungs: clear to auscultation and percussion Cardiac Exam: - regular rate & rhythm, no murmurs gallops or rubs - normal S1, normal S2 Pulses: 2(+) throughout Abdomen: abdomen soft, non-tender, no abnormal masses and no hepatosplenomegaly Musculoskeletal: no gait disturbance, no joint inflammation, no deforming arthritis Extremities: no edema and no cyanosis Neuro: grossly normal exam Results & Data ([facility]) Vital Signs (Past 12 Hours) Vital Signs Temp Pulse Pulse Resp BP Pulse Ox O2 Del Method 05/14/22 08:05 36.8 C 78 19 103/70 97 Room Air 05/14/22 04:33 36.5 C 65 16 100/54 L 92 Room Air 05/13/22 23:52 36.8 C 66 16 128/68 97 Room Air 05/13/22 22:00 64 Laboratory Results Laboratory Results - last 24 hr 05/13/22 05/13/22 06:05 11:17 Magnesium 2.2 Troponin I High Sens 7.6 Medications Administered Current Inpatient Medications Acetaminophen (Acetaminophen 325 Mg Tab) 650 mg PO Q4H PRN PRN Reason: Pain or Fever Stop: 06/11/22 17:29 Acetaminophen (Acetaminophen 500 Mg Tab) 1,000 mg PO BID [facility] Stop: 06/11/22 20:59 Last Admin: 05/14/22 08:33 Dose: 1,000 mg Al Hydrox/Mg Hydrox/Simethicone (Aluminum/Magnesium Susp 30 Ml Udc) 15 ml PO Q4H PRN PRN Reason: Dyspepsia Stop: 06/11/22 17:29 Amitriptyline HCl (Amitriptyline Hcl 10 Mg Tab) 10 mg PO HS [facility] Stop: 06/11/22 21:14 Last Admin: 05/13/22 20:35 Dose: 10 mg Apixaban (Apixaban 5 Mg Tablet) 5 mg PO BID [facility] Stop: 06/11/22 20:59 Last Admin: 05/14/22 08:33 Dose: 5 mg Gabapentin (Gabapentin 300 Mg Cap) 900 mg PO HS [facility] Stop: 06/12/22 20:59 Last Admin: 05/13/22 20:35 Dose: 900 mg Melatonin (Melatonin 3 Mg Tab) 6 mg PO HS [facility] Stop: 06/11/22 20:59 Last Admin: 05/13/22 20:40 Dose: 6 mg Metoprolol Succinate (Metoprolol Succ 25mg Ext Rel Tab) 25 mg PO DAILY [facility] Stop: 06/12/22 08:59 Last Admin: 05/14/22 08:33 Dose: 25 mg Metoprolol Tartrate (Metoprolol Tartrate 1 Mg/Ml Vial) 5 mg IV Q5M PRN PRN Reason: Tachycardia HR > 120 Multivitamins (Multivitamin Tab) 1 tab PO QAM [facility] Stop: 06/12/22 08:59 Last Admin: 05/14/22 08:33 Dose: 1 tab Ondansetron HCl (Ondansetron Inj 2 Mg/Ml 2 Ml Vial) 4 mg IV Q6H PRN PRN Reason: Nausea Stop: 06/11/22 17:29 Potassium Chloride (Potassium Chloride Crtab 20 Meq Tabcr) 20 meq PO BID [facility] Stop: 06/12/22 08:59 Last Admin: 05/14/22 08:36 Dose: 20 meq Rosuvastatin Calcium (Rosuvastatin Calcium 10 Mg Tab) 10 mg PO DAILY [facility] Stop: 06/12/22 08:59 Last Admin: 05/14/22 08:33 Dose: 10 mg
--- NOTE | 2022-05-14 09:55 | Discharge Summary ---
Date of Service May 14, 2022 Admission HPI Per Admitting Provider Trisha Hwang is a 77-year-old female with past medical history significant for A. fib and hyperlipidemia presenting today with palpitations. She was awoken this morning with her heart racing, and on her home monitor measured her heart rate to be in the 180s and irregular. She felt a heaviness in her chest but this. She waited at home to see if the rhythm would go back to normal, however after several hours she decided to come to the ED for further evaluation. States she was recently diagnosed with A. fib about 3 months ago at an outside hospital in [facility] and has since been compliant with her Eliquis and metoprolol but notes she has gotten out of A. fib several times at home, each of these episodes subsiding on its own. She denies associated dizziness or shortness of breath. On arrival her heart rate was in the 150s, otherwise vital signs within normal limits. Prior to EKG being obtained, patient's HR decreased and she was found to be NSR on EKG. Labs unrevealing, her troponin was 9.3, was repeated 2 hours later and was 15.3. TSH is within normal limits, without leukocytosis or anemia. Electrolytes all within normal limits, potassium 3.7 and magnesium 1.8. COVID-negative. As patient missed her morning metoprolol, she was given a dose of metoprolol so sent 25 mg, as well as oral magnesium and potassium. The case was discussed with the on-call [facility] parking inspector, who recommended bringing patient in overnight to trend the troponin, obtain echocardiogram, and further cardiac monitoring on telemetry bed. Admission Exam Per Admitting Provider General: awake, alert, no apparent distress Head: Normocephalic, atraumatic ENT: PERRL, EOMI, no pharyngeal exudate, mucous membranes moist Chest: Clear to auscultation, on room air, no adventitious breath sounds Cardiac: Regular rate and rhythm, no murmur, no JVD, normal peripheral pulses, good capillary refill Abdominal: NABS x 4 quadrants, soft, nontender to palpation, no rebound, guarding or tenderness Extremities: Normal inspection, no peripheral edema or erythema, calfs nontender to palpation Psych: Normal mood and affect Neuro: AAO x 3, strength intact bilaterally and rated 5/5, no motor deficits, speech is clear, no peripheral sensory deficits Skin: no rash or erythema Principal Diagnosis Atrial fibrillation with rapid ventricular response Discharge Exam Constitutional: well-appearing, no acute distress CV: regular rhythm, no murmur appreciated, extremities well-perfused, no LE edema Resp: CTABL, no wheezes/rales/rhonchi appreciated, no increased work of breathing Neuro: alert, oriented, no focal neurologic deficit appreciated Discharge Data Allergies Allergy/AdvReac Type Severity Reaction Status Date / Time codeine Allergy Mild ITCHINESS Verified 05/12/22 15:15 hydromorphone [From Dilaudid] Allergy Mild ITCHINESS Verified 05/12/22 15:15 morphine Allergy Mild ITCHINESS Verified 05/12/22 15:15 sulfamethoxazole Allergy Mild ITCHINESS Verified 05/12/22 15:15 [From Bactrim] trimethoprim [From Bactrim] Allergy Mild ITCHINESS Verified 05/12/22 15:15 theophylline Allergy Unknown CAN'T Verified 05/12/22 15:15 REMEMBER tramadol Allergy Unknown CAN'T Verified 05/12/22 15:15 REMEMBER REYNOLD Inhibitors AdvReac Intermediate Cough Verified 05/12/22 15:15 nefazodone [From Serzone] AdvReac Intermediate FLU-LIKE Verified 05/12/22 15:15 SYMPTOMS tamoxifen AdvReac Intermediate Joint Pain Verified 05/12/22 15:15 NSAIDS (Non-Steroidal AdvReac Unknown POST Verified 05/12/22 15:15 Anti-Inflamma GASTRIC BYPASS SURGERY Consultations 05/12/22 14:17 ED Decision to Admit Stat 05/12/22 17:30 Consult Cardiology Routine Hospital Course (1) Atrial fibrillation with rapid ventricular response: Atrial fibrillation with RVR Patient presented to the ED with palpitations and tachycardia (rates to the 180s noted prior to arrival). Patient did not have chest pain or overt ischemic change on EKG. Patient spontaneously converted to NSR prior to arrival. Initial hsTroponin was trivially elevated, and repeat hsTroponin was slightly higher, though this peaked and fell on hospital day one; this was felt to represent demand ischemia secondary to RVR. Echo performed was unremarkable with an EF of 55-60%. Cardiology was consulted and recommended patient continue on metoprolol succinate 25mg daily (patient's regimen prior to this hospitalization) and continue home eliquis. Cardiology recommended consideration of an antiarrhythmic agent if patient had another episode of RVR in-hospital (or in the future) but patient stayed in NSR for the rest of this hospitalization. Patient was discharged on hospital day two with no changes made to patient's med regimen. (2) Hyperlipidemia: Total Time Total Time Spent Total Time Spent (In Minutes): <30 Discharge Plan Discharge Items Patient Disposition: Home - Self-Care Reason For Visit: A FIB RVR Discharge Diagnosis: Atrial fibrillation with rapid ventricular rate Activity: Resume your previous activity Non-emergency contact: Primary Care Provider and [employer] Call non-emergency contact if: you have any medication questions and your symptoms worsen Follow-up/Referrals: Rashard Kramer MD [Primary Care Provider] - 05/20/22 9:05 am (discharge follow up appointment: May 20, 2022 @ 9:05am with Dr Santiago) Diet: Heart Healthy Addtl Attending Provider Instructions: You were admitted to the hospital for palpitations due to atrial fibrillation with a rapid heart rate. You were treated with your home med regimen (metoprolol) to lower your heart rate. After monitoring you for the past day, your heart rate has been well-controlled, and you have not had a further episode of atrial fibrillation. We feel it is safe for you to return home on the medication regimen you had prior to coming to the hospital. A discharge summary will be sent to your primary care physician to ensure continuity of care. Please bring this discharge summary with you to your next office appointment so that your provider can review it at that time. Follow-up appointments: Make a follow-up appointment with your PCP within the next week. It is very important that you follow up with them shortly after discharge from the hospital. Keep all your follow-up appointments as already scheduled. If you cannot make an appointment, notify your provider. Medications: Your medication list has been reviewed and reconciled upon discharge to ensure accuracy and continuity of care. An updated list of all your medications is included with your hospital discharge paperwork. Please review this list closely, and make note of any changes. Continue taking apixaban (eliquis) 5mg twice daily. We did not change the dosing or frequency of this medication. Continue taking metoprolol succinate 25mg once daily. We did not change the dosing or frequency of this medication. Take your medications as instructed; do not skip a dose of your medicines. Make sure all of your doctors know every medicine you are taking (including jzmr-sej-kcwzsal medicines, vitamins, and supplements). Call your primary care provider before taking any new medicines (including vczl-[id number] medicines, vitamins, and supplements), because some of these may interact with your current medications, or may make your symptoms worse. Tell your primary care provider if you cannot afford your medications. CONTACT YOUR PRIMARY CARE PROVIDER if you experience any of the following: Palpitations Elevated heart rate Difficulty following your treatment plan, or difficulty taking medications CALL 911 OR GO TO THE EMERGENCY DEPARTMENT if you experience any of the following: Sudden, severe abdominal pain or nausea/vomiting Severe chest pain, or chest pain that radiates (moves) to your jaw or arm Sudden, severe shortness of breath or difficulty breathing Thank you for allowing us to participate in your care. Pending Studies at Discharge: No Stand-Alone Forms: My [facility], Smoking Cessation Medications and DC Order Prescriptions: Continued amitriptyline 10 mg tablet 10 mg PO HS gabapentin 300 mg capsule 900 mg PO HS metoprolol succinate 25 mg tablet extended release 24 hr 25 mg PO DAILY rosuvastatin 10 mg tablet 10 mg PO DAILY Eliquis 5 mg tablet 5 mg PO BID multivitamin Tablet 1 tab PO QAM melatonin 3 mg Tablet 6 mg PO HS acetaminophen [Tylenol Extra Strength] 500 mg Tablet 1,000 mg PO BID [facility] 750 mg-100 mg- 1.65 mg-108 mg Tablet 1 tab PO QAM Discharge Orders: Discharge Order (Routine); Ordered 05/14/22 Ordered By: Cuong Flores Admission Data Admit Date/Time: 05/12/22 15:19 Attending Provider: Nigel Monore Admit Provider: Tomasz Winston Primary Care Provider: Rashard Kramer Other Providers: Tomasz Winston ; Javan Thomas Other Interventions: Discharge Summary Assessment (RN) Last Done: 05/14/22 10:11 Supervising Physician Co-Signing Physician Notes I personally examined the patient and verified all bill points of history and exam, discussed case, and agree with decision making with Dr Flores Feels good and would like to go home. Vitals noted, in general she is awake and alert pleasant no distress. HEENT normocephalic atraumatic mucous membranes moist. Breathing unlabored no accessory muscle use good effort. Skin shows no rashes no pallor or icterus. Neuro without focal deficits. Paroxysmal A. fib/RVRnow sinus, rate controlled. Safe for home, continue current meds. Outpatient follow-up Otherwise as above. Resident Activity Tracking Resident Involvement: Resident Care Provided Care Provided: Adult Hospital Medicine
--- NOTE | 2022-05-14 18:02 | Billing Data ---
Date of Service May 14, 2022 Coding Level of Care Code D/C DAY MANAGEMENT <30 MINS
--- NOTE | 2022-05-14 18:03 | Billing Data ---
Date of Service May 14, 2022 Coding Level of Care Code 60960 OBS Care - Discharge Comment should be obs dc - disregard <30mins dc - error, thanks!
== END 2022-05-14 15:45 | disposition home or self-care (01) ==
LOC: EDINP 10:15 → ED 10:15 → SUATTDRO 15:19 → 2E 17:10